=== PATIENT | male | born 1925 | race Caucasian/White ===

== ENCOUNTER → 2016-04-10 | Outpatient (CLI) | payer OTHER, BC ==
[~2016-04-10] MED LIST: ADULT LOW DOSE81 M1 PO; MULTIVITAMIN1 EAC2 PO
== END | disposition home or self-care (01) ==
LOC: NUC 08:47
DX: C61 Malignant neoplasm of prostate (principal); M41.9 Scoliosis, unspecified; M19.019 Primary osteoarthritis, unspecified shoulder; M19.071 Primary osteoarthritis, right ankle and foot; M19.072 Primary osteoarthritis, left ankle and foot
CPT/HCPCS: 78306; A9503